=== PATIENT | female | born 1940 | race Caucasian/White ===

== ENCOUNTER 2017-02-28 12:59 | Emergency (ER) | payer BC, MEDICARE ==
[~2017-02-28] VITALS: Ht 170.2 cm; Wt 83.9 kg
[2017-02-28 13:25] VITALS: BP 123/56
--- NOTE | 2017-02-28 13:26 | PHYS DOC ---
Past Medical History Past Medical History: Diabetes-Type II, Hypertension Past Surgical History: Cholecystectomy Additional Past Surgical Histo: arie shunt Alcohol Use: None Drug Use: None Adult General Chief Complaint Chief Complaint: FOOT INJURY PAIN HPI HPI Patient is a 76 year old female presenting to the emergency department for evaluation of right foot pain after several large plastic storage containers fell on the top of her foot. This happened 2 days ago and it has been increasingly more difficult to walk and sleep due to the pain. The pain is on her posterior right lateral calcaneus. She has some abrasions and contusions on the top of her foot. She says her tetanus is not up-to-date so it was updated here. She is in no obvious distress with normal vital signs. Review of Systems Review of Systems Constitutional: Denies fever or chills [] Musculoskeletal: + R foot joint pain [] Integument: + abrasion Neurologic: Denies headache, focal weakness or sensory changes [] Current Medications Current Medications Current Medications Medications (Trade) Dose Ordered Sig/Awais Start Time Stop Time Status Last Admin Dose Admin Diphtheria/ Tetanus/Acell Pertussis (Boostrix) 0.5 ml ONCE ONCE 02/28/17 13:30 02/28/17 13:31 DC Allergies Allergies Allergies Coded Allergies Type Severity Reaction Last Updated Verified Penicillins Allergy 09/21/13 Yes Physical Exam Physical Exam Constitutional: Well developed, well nourished, no acute distress, non-toxic appearance. [] Extremities: Top of right foot with small contusion and overlying abrasion. Foot is mostly nontender except for her right posterior lateral calcaneus area. Neurologic: Alert and oriented X 3, normal motor function, normal sensory function, no focal deficits noted. [] Current Patient Data Vital Signs Vital Signs Date Time Temp Pulse Resp B/P (MAP) Pulse Ox O2 Delivery O2 Flow Rate FiO2 02/28/17 13:25 98.0 88 18 97 Room Air 98.0 EKG EKG [] Radiology/Procedures Radiology/Procedures EXAM: Right foot, 3 views. HISTORY: Heel pain. COMPARISON: None. FINDINGS: Frontal, lateral and oblique views of the right foot are obtained. There is no fracture, dislocation or subluxation. There is slight hyperextension of the second through fifth metatarsal phalangeal joints. There is a small plantar spur. There is enthesopathy at the Achilles tendon insertion. There are vascular calcifications. IMPRESSION: 1. No acute osseous finding. 2. Small plantar spur. DICTATED and SIGNED BY: SHANEKA GUTIERREZ MD DATE: 02/28/17 9259 Course & Med Decision Making Course & Med Decision Making Patient's x-ray unremarkable for acute findings so will discharge with instructions for NSAIDs [place] for breakthrough pain and PCP follow-up later this week if not improved. Patient aware and agreeable with plan. Dragon Disclaimer Dragon Disclaimer This electronic medical record was generated, in whole or in part, using a voice recognition dictation system. Departure Departure Impression: Primary Impression: Foot sprain Disposition: HOME, SELF-CARE Condition: GOOD Referrals: YOSEF CR MD (PCP) Patient Instructions: Foot Contusion Additional Instructions: TAKE 200MG OF IBUPROFEN EVERY 6 HOURS AND THE NORCO FOR BREAKTHROUGH PAIN. COME BACK TO THE ED SOONER WITH ANY NEW OR WORSENING SYMPTOMS. THANK YOU! Scripts Hydrocodone/Apap 5-325 (NORCO 5-325 TABLET) 1 Each Tablet 1 TAB PO PRN Q6HRS Y for PAIN, #14 TAB 0 Refills Prov: MIRA SALDIVAR DO 02/28/17 Problem Qualifiers Primary Impression: Foot sprain Encounter type: initial encounter Laterality: right Qualified Codes: S93.601A - Unspecified sprain of right foot, initial encounter MIRA SALDIVAR DO February 28, 2017 13:26
[2017-02-28] MEDS ORDERED: DIPHTH,PERTUSS(ACELL),TET TOX 0.5 ML DISP.SYRIN. VAX IM ONE (13:30)
--- NOTE | 2017-02-28 13:35 | RAD ---
EXAM: Right foot, 3 views. HISTORY: Heel pain. COMPARISON: None. FINDINGS: Frontal, lateral and oblique views of the right foot are obtained. There is no fracture, dislocation or subluxation. There is slight hyperextension of the second through fifth metatarsal phalangeal joints. There is a small plantar spur. There is enthesopathy at the Achilles tendon insertion. There are vascular calcifications. IMPRESSION: 1. No acute osseous finding. 2. Small plantar spur.
[2017-02-28] MEDS ORDERED: HYDR-971 PO (13:37)
== END 2017-02-28 14:04 | disposition home or self-care (01) ==
LOC: ER 12:59
DX: S93.601A Unspecified sprain of right foot, initial encounter (principal); E11.9 Type 2 diabetes mellitus without complications; I10 Essential (primary) hypertension; Z88.0 Allergy status to penicillin; W20.8XXA Other cause of strike by thrown, projected or falling object, initial encounter; Y93.89 Activity, other specified; Y92.89 Other specified places as the place of occurrence of the external cause; Y99.8 Other external cause status
CPT/HCPCS: 73630; 90471; 90715; 99284-25

== ENCOUNTER 2017-04-12 12:30 | Emergency (ER) | payer BC | END 2017-04-12 13:00 | disposition left against medical advice (07) | LOC: ER 12:30 | DX: R06.02 Shortness of breath (principal); Z53.21 Procedure and treatment not carried out due to patient leaving prior to being seen by health care provider ==

== ENCOUNTER → 2017-04-12 | Outpatient (CLI) | payer BC ==
[~2017-04-12] MED LIST: HYDR-971 PO
--- NOTE | 2017-04-12 14:20 | RAD ---
2 views of the Chest 04/12/2017 2:00 AM Indication: BRONCHITIS Comparison: Chest radiograph September 21, 2013 Findings: There is no focal consolidation or infiltrate identified. There is no effusion or pneumothorax. The cardiomediastinal silhouette and pulmonary vasculature are within normal limits. No osseous abnormality is identified. Impression: No evidence of acute cardiopulmonary process.
== END | disposition home or self-care (01) ==
LOC: RAD 13:12
PROVIDERS: ATTEND Family Medicine
DX: J40 Bronchitis, not specified as acute or chronic (principal)
CPT/HCPCS: 71020

== ENCOUNTER 2019-04-23 13:47 | Emergency (ER) | payer BC ==
[~2019-04-23] VITALS: Ht 170.2 cm; Wt 88.5 kg
[~2019-04-23 13:47] MED LIST changes: +HYDR-3164 PO; -HYDR-971 PO
[2019-04-23 13:55] VITALS: BP 162/67
--- NOTE | 2019-04-23 14:18 | PHYS DOC ---
Past Medical History Past Medical History: COPD, Diabetes-Type II, Hypertension Past Surgical History: Cholecystectomy Additional Past Surgical Histo: arie shunt Alcohol Use: None Drug Use: None Adult General Chief Complaint Chief Complaint: LOWER EXT PAIN HPI HPI Patient is a 78 old female who presents to the emergency department for evaluation of pain in both of her feet, for the past several weeks. She states about a month and a half ago, she developed a small sore on the lateral aspect of her left ankle after an injury. She states that she saw her PCP, and put antibiotic ointment on it per his instructions. However, she states that she developed a scaly-like lesions surrounding the wound, approximately 2 inches in diameter. She denies significant pain at that site. She also complains of pain on the right heel, which hasn't present for the past several weeks. She denies any discrete injury, but feels that "something is growing" in her heel. Palpation of the affected area worsens her pain. There are no alleviating factors to her symptoms. She denies any numbness, weakness, nausea, or vomiting. Patient declines the need for any analgesics at this time. Review of Systems Review of Systems Constitutional: Denies fever or chills [] Eyes: Denies change in visual acuity, redness, or eye pain [] HENT: Denies nasal congestion or sore throat [] Respiratory: Denies cough or shortness of breath [] Cardiovascular: The patient denies any shortness of breath, chest pain, palpitations, or orthopnea [] GI: Denies abdominal pain, nausea, vomiting, bloody stools or diarrhea [] : Denies dysuria or hematuria [] Musculoskeletal: Denies back pain or joint pain [] Integument: Denies rash or skin lesions, except as noted in the history of present illness. [] Neurologic: Denies headache, focal weakness or sensory changes [] Allergies Allergies Allergies Coded Allergies Type Severity Reaction Last Updated Verified Penicillins Allergy Intermediate 04/12/17 Yes Physical Exam Physical Exam PHYSICAL EXAM: CONSTITUTIONAL: Well developed, well nourished HEAD: normocephalic, atraumatic EENT: PERRL, EOMI. Conjunctivae normal color, sclerae non-icteric; moist mucous membranes. NECK: Supple, non-tender; no meningismus. LUNGS: Lungs CTA, breathing even and unlabored. Normal air movement. HEART: Regular rate and rhythm, no murmur CHEST: No deformity; non-tender ABDOMEN: The abdomen is soft, and non-tender, no masses or bruits. EXTREM: There is tenderness to palpation of the right heel, without any discrete lesion or abnormality. On the lateral aspect of the left ankle, there is a 2 x 2 centimeter scab, within approximately 2 inch circumferential surrounding erythematous plaque-like lesion which is scaly and nontender. The remainder of extremities are unremarkable, withNormal ROM; no deformity, no calf tenderness. Normal pulses palpable in all extremities. There is no pedal edema. SKIN: No rash; no diaphoresis NEURO: Alert; normal speech and cognition; CN's grossly intact; strength grossly intact without focal deficit. BACK: No CVA TTP. Current Patient Data Vital Signs Vital Signs Date Time Temp Pulse Resp B/P (MAP) Pulse Ox O2 Delivery O2 Flow Rate FiO2 04/23/19 13:55 98.0 74 16 162/67 (98) 97 Room Air 98.0 EKG EKG [] Radiology/Procedures Radiology/Procedures [PROCEDURE: FOOT RIGHT 3V Indication:Chronic right foot pain around here. No known injury TECHNIQUE: 3 views of the right foot COMPARISON: 02/28/2017 FINDINGS/ impression: No acute fracture or dislocation. Small plantar calcaneal spur. Soft tissue swelling is seen in the heel pad. Mild polyarticular osteoarthritis. ] Course & Med Decision Making Course & Med Decision Making Pertinent Imaging studies reviewed. (See chart for details) []3:00 PM:Patient remains stable. I discussed test results, the need for close follow-up, and return precautions. I discussed the uncertain etiology of the skin lesion on her left ankle and recommended she follow up with a digital business analyst. She states that she has a digital business analyst who she sees, as she recently had a skin cancer removed from her face. Dragon Disclaimer Dragon Disclaimer This electronic medical record was generated, in whole or in part, using a voice recognition dictation system. Departure Departure Impression: Primary Impression: Heel pain Additional Impression: Rash Disposition: 01 HOME, SELF-CARE Condition: STABLE Referrals: Cony CR MD (PCP) Patient Instructions: Heel Spur, Rash Problem Qualifiers MIRA JORGENSEN MD Apr 23, 2019 14:18
--- NOTE | 2019-04-23 14:53 | RAD ---
Indication:Chronic right foot pain around here. No known injury TECHNIQUE: 3 views of the right foot COMPARISON: 02/28/2017 FINDINGS/ impression: No acute fracture or dislocation. Small plantar calcaneal spur. Soft tissue swelling is seen in the heel pad. Mild polyarticular osteoarthritis. Electronically signed by: Cosmo Tsang DO (04/23/2019 2:50 PM) [facility]
== END 2019-04-23 15:11 | disposition home or self-care (01) ==
LOC: ER 13:47
DX: M79.671 Pain in right foot (principal); R21 Rash and other nonspecific skin eruption; G89.29 Other chronic pain; J44.9 Chronic obstructive pulmonary disease, unspecified; E11.9 Type 2 diabetes mellitus without complications; I10 Essential (primary) hypertension; Z88.0 Allergy status to penicillin
CPT/HCPCS: 73630; 99284

== ENCOUNTER → 2021-05-14 | Outpatient (CLI) | payer BC ==
--- NOTE | 2021-05-14 10:52 | RAD ---
EXAM: ABDOMINAL ULTRASOUND. HISTORY: Elevated liver enzymes. COMPARISON: None. FINDINGS: Sonographic evaluation of the abdomen was performed. Increased hepatic parenchymal echogenicity is consistent with steatosis. There are no focal lesions. The spleen measures 11.1 cm. The gallbladder is surgically absent. There is no sonographic Lucia sign. The common duct is dilated at 17 mm. The visualized portions of the head of the pancreas reveal no abnormality. The right kidney measures 10.2 cm. Cortical thickness and echogenicity are preserved. There is no hyd ronephrosis. The left kidney measures 12.0 cm. Cortical thickness and echogenicity are preserved. The re is no hydronephrosis. The visualized portions of the abdominal aorta and inferior vena cava are grossly patent and normal i n caliber. IMPRESSION: 1. Moderate extrahepatic biliary dilatation status post cholecystectomy. Correlate for cholestasis to assess significance. CT or MRCP could further evaluate if there is persistent concern. 2. Diffuse hepatic steatosis. Electronically signed by: Lissette Dubose MD (05/14/2021 10:50 AM) [id number]
== END ==
LOC: US 08:49
PROVIDERS: ATTEND Family Medicine
DX: K76.0 Fatty (change of) liver, not elsewhere classified (principal); Z90.49 Acquired absence of other specified parts of digestive tract
CPT/HCPCS: 76700

== ENCOUNTER 2022-01-23 08:51 | Emergency (ER) | payer BC ==
[~2022-01-23] VITALS: Ht 170.2 cm; Wt 79.5 kg
[2022-01-23] MEDS ORDERED: IV RINGERS,LACTATED 1000ML 1,000 ML IV ONE (09:45)
[2022-01-23 11:15] LABS: CALCIUM 8.9 mg/dL (8.5-10.1); CREATININE 1.1 mg/dL (0.6-1.0); GFR 47.9; POTASSIUM 4.8 mmol/L (3.5-5.1)
[2022-01-23 11:17] LABS: BASO % 1 % (0-3); EOS # 0.2 x10^3/uL (0.0-0.7); EOS % 2 % (0-3); HEMATOCRIT 34.4 % (36.0-47.0); HEMOGLOBIN 11.5 g/dL (12.0-15.5); LYMPH # 1.9 x10^3/uL (1.0-4.8); LYMPH % 27 % (24-48); MEAN CORPUSCULAR HEMOGLOBIN 28 pg (25-35); MEAN CORPUSCULAR HGB CONC 33 g/dL (31-37); MEAN CORPUSCULAR VOLUME 85 fL (79-100); MONO # 0.5 x10^3/uL (0.0-1.1); MONO % 7 % (0-9); NEUT # 4.5 x10^3/uL (1.8-7.7); NEUT % 63 % (31-73); PLATELET COUNT 176 x10^3/uL (140-400); RED BLOOD COUNT 4.06 x10^6/uL (3.50-5.40); RED CELL DISTRIBUTION WIDTH 14.3 % (11.5-14.5); WHITE BLOOD COUNT 7.1 x10^3/uL (4.0-11.0)
[2022-01-23 11:22] LABS: ALBUMIN 3.4 g/dL (3.4-5.0); ALBUMIN/GLOBULIN RATIO 0.8 (1.0-1.7); TOTAL BILIRUBIN 0.2 mg/dL (0.2-1.0); TOTAL PROTEIN 7.6 g/dL (6.4-8.2)
--- NOTE | 2022-01-23 11:49 | PHYS DOC ---
Past Medical History Past Medical History: COPD, Diabetes-Type II, Hypertension Past Surgical History: Cholecystectomy Additional Past Surgical Histo: arie shunt Smoking Status: Never Smoker Alcohol Use: None Drug Use: None General Adult EDM: Chief Complaint: VAGINAL BLEEDING HPI: HPI: Patient is a 81 year old female who presents with chief complaint of vaginal bleeding. Patient reports that she noticed a scant amount of blood in her underwear yesterday, which resolved on its own. She noticed the same today, and decided to come in for evaluation of vaginal bleeding. She states her daughter has been diagnosed with MANAGER GAMING cancer. Patient denies abdominal pain, pelvic pain, N/V/D, dysuria, hematuria, vaginal discharge, vaginal pain. Review of Systems: Review of Systems: Constitutional: Denies fever, chills or generalized weakness Eyes: Denies change in visual acuity, visual field deficits or discharge HENT: Denies ear pain, nasal congestion or sore throat Respiratory: Denies cough or shortness of breath Cardiovascular: Denies chest pain, palpitations or edema GI: See HPI : See HPI Musculoskeletal: Denies back pain or joint pain Integument: Denies rash or other skin lesion Neurologic: Denies headache, focal weakness or sensory changes Heart Score: C/O Chest Pain: No Current Medications: Current Medications Medications (Trade) Dose Ordered Sig/Awais Start Time Stop Time Status Last Admin Dose Admin Ringer's Solution 1,000 ml @ 1,000 mls/hr 1X ONCE 01/23/22 09:45 01/23/22 10:44 DC 01/23/22 10:52 1,000 MLS/HR Allergies: Allergies: Allergies Coded Allergies Type Severity Reaction Last Updated Verified Penicillins Allergy Intermediate 04/12/17 Yes Physical Exam: PE: Constitutional: Well developed, well nourished, no acute distress, non-toxic appearance. HENT: Normocephalic, atraumatic, bilateral external ears normal, nose normal. Eyes: EOMI, conjunctiva normal, no discharge. Neck: Normal range of motion, no stridor. Abdomen: Bowel sounds normal, soft, no tenderness, no masses, no pulsatile masses. Skin: Warm, dry, no erythema, no rash. Back: No tenderness, no CVA tenderness. Neurologic: Alert and oriented x4, normal motor function, normal sensory function, no focal deficits noted. Current Patient Data: Labs: Laboratory Tests Test 01/23/22 10:50 01/23/22 12:05 White Blood Count 7.1 x10^3/uL (4.0-11.0) Red Blood Count 4.06 x10^6/uL (3.50-5.40) Hemoglobin 11.5 g/dL (12.0-15.5) Hematocrit 34.4 % (36.0-47.0) Mean Corpuscular Volume 85 fL (79-100) Mean Corpuscular Hemoglobin 28 pg (25-35) Mean Corpuscular Hemoglobin Concent 33 g/dL (31-37) Red Cell Distribution Width 14.3 % (11.5-14.5) Platelet Count 176 x10^3/uL (140-400) Neutrophils (%) (Auto) 63 % (31-73) Lymphocytes (%) (Auto) 27 % (24-48) Monocytes (%) (Auto) 7 % (0-9) Eosinophils (%) (Auto) 2 % (0-3) Basophils (%) (Auto) 1 % (0-3) Neutrophils # (Auto) 4.5 x10^3/uL (1.8-7.7) Lymphocytes # (Auto) 1.9 x10^3/uL (1.0-4.8) Monocytes # (Auto) 0.5 x10^3/uL (0.0-1.1) Eosinophils # (Auto) 0.2 x10^3/uL (0.0-0.7) Basophils # (Auto) 0.0 x10^3/uL (0.0-0.2) Sodium Level 137 mmol/L (136-145) Potassium Level 4.8 mmol/L (3.5-5.1) Chloride Level 103 mmol/L (98-107) Carbon Dioxide Level 24 mmol/L (21-32) Anion Gap 10 (6-14) Blood Urea Nitrogen 32 mg/dL (7-20) Creatinine 1.1 mg/dL (0.6-1.0) Estimated GFR (Cockcroft-Gault) 47.9 BUN/Creatinine Ratio 29 (6-20) Glucose Level 327 mg/dL (70-99) Calcium Level 8.9 mg/dL (8.5-10.1) Total Bilirubin 0.2 mg/dL (0.2-1.0) Aspartate Amino Transf (AST/SGOT) 38 U/L (15-37) Alanine Aminotransferase (ALT/SGPT) 54 U/L (14-59) Alkaline Phosphatase 103 U/L (46-116) Total Protein 7.6 g/dL (6.4-8.2) Albumin 3.4 g/dL (3.4-5.0) Albumin/Globulin Ratio 0.8 (1.0-1.7) Urine Collection Type Unknown Urine Color (Auto) Colorless Urine Turbidity Clear Urine pH (Auto) 6.5 (<5.0-8.0) Urine Specific [place] 1.008 (1.000-1.030) Urine Protein (Auto) Negative mg/dL (Negative) Urine Glucose (Auto)(UA) 500 mg/dL (Negative) Urine Ketones (Auto) Negative mg/dL (Negative) Urine Blood (Auto) Negative (Negative) Urine Nitrite Negative (Negative) Urine Bilirubin (Auto) Negative (Negative) Urine Urobilinogen (Auto) Normal mg/dL (Normal) Urine Leukocyte Esterase (Auto) Negative (Negative) Urine RBC 0 /HPF (0-2) Urine WBC Occ /HPF (0-4) Urine Squamous Epithelial Cells Few /LPF Urine Bacteria 0 /HPF (0-FEW) Laboratory Tests 01/23/22 10:50 Laboratory Tests 01/23/22 10:50 Vital Signs: Vital Signs Date Time Temp Pulse Resp B/P (MAP) Pulse Ox O2 Delivery O2 Flow Rate FiO2 01/23/22 10:54 74 18 157/67 (97) 99 Room Air 01/23/22 09:25 97.9 71 20 135/78 (97) 99 Room Air 97.9 Radiology/Procedures: Radiology/Procedures: PROCEDURE: PELVIS W/TV EXAMINATION: US PELVIS W/TV, 01/23/2022 11:47 AM CLINICAL INDICATION: Vaginal bleeding postmenopausal TECHNIQUE: Grayscale, color and spectral Doppler ultrasound images of the pelvis via transabdominal and transvaginal approach. COMPARISON: None. FINDINGS: The exam was limited due to patient discomfort. The uterus measures 8.0 x 5.9 x 3.8 cm. There is a small amount of fluid in the endometrial canal. Subtracting the width of the fluid, the endometrial stripe measures 6 mm in thickness. No myometrial mass. The right ovary measures 2.7 x 1.9 x 2.1 cm. There is normal right ovarian blood flow. The left ovary is obscured by bowel gas. No adnexal mass or free fluid. IMPRESSION: 1. Limited exam due to patient discomfort. 2. Small amount of fluid in the endometrial canal and mildly thickened endometrial stripe measuring 6 mm after subtracting the width of the fluid. 3. Nonvisualized left ovary, obscured by bowel gas. Electronically signed by: Candace Arauz MD (01/23/2022 1:21 PM) [id number] Course & Med Decision Making: Course & Med Decision Making Pertinent Labs and Imaging studies reviewed. (See chart for details) Is a 81-year-old female who presents with 2-day history of vaginal bleeding. Patient denies all other complaints. Work-up today will include labs, urinalysis via straight cath, pelvic ultrasound. Ultrasound reveals endometrial fluid with 6 mm endometrial stripe, concerning for underlying pathology. Spoke to Dr. Griffin, MOGUL OPERATOR, who advises patient follow-up with either him or Dr. Hermelinda Morse, gynecology/oncology, at [facility]. Patient will be given contact information for both providers and strongly advised to follow-up for further evaluation and management. Return precautions were provided. Patient understands and is agreeable to discharge plan. Dragon Disclaimer: Ninite Disclaimer: This electronic medical record was generated, in whole or in part, using a voice recognition dictation system. Departure Departure Impression: Primary Impression: Postmenopausal vaginal bleeding Disposition: HOME / SELF CARE / HOMELESS Condition: STABLE Referrals: Cony CR MD (PCP) MARA GRIFFIN MD Patient Instructions: Abnormal Uterine Bleeding Additional Instructions: Dr. Hermelinda Morse [facility] [place] [address] for appointments EMERGENCY DEPARTMENT GENERAL DISCHARGE INSTRUCTIONS Thank you for coming to [facility] Emergency Department (ED) today and trusting us with you care. We trust that you had a positive experience in our Emergency Department. If you wish to speak to the department management, you may call the director at . YOUR FOLLOW UP INSTRUCTIONS ARE FOLLOWS: 1. Follow up with your primary care doctor. If you do not have a primary doctor, please ask for a resource list of physicians or clinics that may be able to assist you with follow up care. 2. The emergency provider has interpreted your imaging studies, if any were ordered. The radiology patient care specialist also reviewed them. If there is a change in the findings, you will be notified in 48 hours when at all possible. 3. If a lab test or culture has been done, your results will be reviewed and you will be notified if you need a change in treatment. 4. Follow instructions verbalized to you and refer to the printouts if needed. ADDITIONAL INSTRUCTIONS AND INFORMATION: 1. Your care today has been supervised by a physician who is specially trained in emergency care. Many problems require more than one evaluation for a complete diagnosis and treatment. We recommend that you schedule your follow up appointment as recommended to ensure complete treatment of you illness or injury. If you are unable to obtain follow up care and continue to have a pr oblem, or if your condition worsens, we recommend that you return to the ED. 2. We are not able to safely determine your condition over the phone nor are we able to give sound medical advice over the phone. For these safety reasons, if you call for medical advice we will ask you to come to the ED for further evaluation. 3. If you have any questions regarding these discharge instructions please call the ED at . SAFETY INFORMATION: In the interest of safety, wellness, and injury prevention; we encourage you to wear your seat belt, if you smoke; quite smoking, and we encourage family to use a protective helmet for bicycling and other sporting events that present an increased risk for head injury. IF YOUR SYMPTOMS WORSEN OR NEW SYMPTOMS DEVELOP, OR YOU HAVE CONCERNS ABOUT YOUR CONDITION; OR IF YOUR CONDITION WORSENS WHILE YOU ARE WAITING FOR YOUR FOLLOW UP APPOINTMENT; EITHER CONTACT YOUR PRIMARY CARE DOCTOR, THE PHYSICIAN WHOSE NAME AND NUMBER YOU WERE GIVEN, OR RETURN TO THE ED IMMEDIATELY. DRU PASCAL Jan 23, 2022 11:49
[2022-01-23 13:03] LABS: BACTERIA,URINE 0 /HPF (0-FEW); RBC,URINE 0 /HPF (0-2); WBC,URINE OCC /HPF (0-4)
--- NOTE | 2022-01-23 13:23 | RAD ---
EXAMINATION: US PELVIS W/TV, 01/23/2022 11:47 AM CLINICAL INDICATION: Vaginal bleeding postmenopausal TECHNIQUE: Grayscale, color and spectral Doppler ultrasound images of the pelvis via transabdominal a nd transvaginal approach. COMPARISON: None. FINDINGS: The exam was limited due to patient discomfort. The uterus measures 8.0 x 5.9 x 3.8 cm. There is a small amount of fluid in the endometrial canal. Morrison btracting the width of the fluid, the endometrial stripe measures 6 mm in thickness. No myometrial m ass. The right ovary measures 2.7 x 1.9 x 2.1 cm. There is normal right ovarian blood flow. The left ovary is obscured by bowel gas. No adnexal mass or free fluid. IMPRESSION: 1. Limited exam due to patient discomfort. 2. Small amount of fluid in the endometrial canal and mildly thickened endometrial stripe measuring 6 mm after subtracting the width of the fluid. 3. Nonvisualized left ovary, obscured by bowel gas. Electronically signed by: Candace Arauz MD (01/23/2022 1:21 PM) [id number]
[2022-01-23 14:25] VITALS: BP 152/66
== END 2022-01-23 14:31 | disposition home or self-care (01) ==
LOC: ER 08:51
DX: N95.0 Postmenopausal bleeding (principal); J44.9 Chronic obstructive pulmonary disease, unspecified; E11.9 Type 2 diabetes mellitus without complications; I10 Essential (primary) hypertension; Z88.0 Allergy status to penicillin
CPT/HCPCS: 36415; 76830; 76856; 80053; 81001; 85025; 96360; 99285; J7120; P9612

== ENCOUNTER 2022-01-30 11:13 | Emergency (ER) | payer BC ==
[~2022-01-30] VITALS: Ht 170.2 cm; Wt 84.1 kg
[2022-01-30 11:16] VITALS: BP 125/59
[2022-01-30] MEDS ORDERED: KETOROLAC 15 MG/ML VIAL. IM ONE (12:30)
[2022-01-30] MEDS ORDERED: ORPHENADRINE CITRATE 60 MG/2 ML VIAL. IM ONE (12:30)
--- NOTE | 2022-01-30 13:23 | RAD ---
CT HEAD AND C-SPINE WO Date: 01/30/2022 12:54 PM Clinical Indication: Pain status post fall Comparison: MRI cervical spine from 2012. Technique: 5 mm axial tomographic images were obtained of the head without contrast. These were view ed on brain and bone windows. Noncontrast CT of the cervical spine was performed. Sagittal and root l reformats were performed and evaluated. One or more of the following dose reduction techniques were utilized: Automated exposure control (AEC), Adjustment of mA and/or kV according to patient size, Us e of iterative reconstruction technique such as ASiR, CT scan done according to ALARA and image gentl y/image wisely HEAD FINDINGS: Mild generalized cerebral and cerebellar volume loss. Mild nonspecific periventricular hypoattenuatio n, most commonly seen with chronic small vessel ischemic disease. No intra- or extra-axial mass or fluid collection. No acute hemorrhage. The ventricles are normal in size, shape, and morphology. The gallegos-white matter junction is normal. The basilar cisterns are paten t. The visualized paranasal sinuses are normal. The visualized portions of the orbits and globes are no rmal. The mastoid air cells are clear. No aggressive osseous lesion or fracture. CERVICAL SPINE FINDINGS: The cervical spine is normally aligned. No acute fracture. No aggressive lytic or blastic osseous les ions. Mild multilevel degenerative disc space height loss. Multilevel mild spinal canal stenosis secondary to disc protrusions and marginal osteophytes. Multilevel mild neuroforaminal narrowing secondary to u ncovertebral arthrosis. Multilevel mild facet arthrosis. Next attenuating 1.7 cm nodule in the left thyroid lobe with associated coarse calcifications. No cer vical lymphadenopathy. Bilateral carotid atherosclerosis. The visualized aerodigestive tract is nayely l. Minimal biapical pleural scarring. The visualized portions of the lungs are clear. IMPRESSION: 1. No acute intracranial process. 2. No acute cervical spine fracture. 3. Mild cerebral volume loss. Mild chronic small vessel ischemic disease. 4. Mild degenerative cervical spondylosis. 5. Mixed attenuating 1.7 cm nodule in the left thyroid lobe with associated coarse calcifications. Re commend correlation with endocrine function and follow-up with thyroid ultrasound. Electronically signed by: Frank Anne DO (01/30/2022 1:21 PM) [facility]
--- NOTE | 2022-01-30 13:37 | RAD ---
CT LUMBAR SPINE WO, CT THORACIC SPINE WO History: Pain status post fall Technique: Noncontrast CT was performed of the thoracic and lumbar spine. Multiplanar reconstructions were performed. Comparison: None Findings: Decreased osseous mineralization. There are 12 thoracic vertebral bodies in normal alignment. Vertebral body heights are maintained. Th ere are flowing osteophytes throughout the thoracic spine. There is a linear lucency through the larg e marginal osteophytes at the T7-T8 level. No significant canal or foraminal stenosis in the thoracic spine. Mildly patulous esophagus containing a fluid level in the mid thorax. Linear subpleural reticular rama nges in the lungs. No pleural effusion. There are 5 nonrib-bearing lumbar type vertebral bodies. Normal lumbar vertebral heights are maintain ed without fracture. Normal alignment. Multilevel lumbar degenerative changes with moderate disc spac e narrowing L3-L4 and L4-L5. Severe disc height loss L5-S1. Multilevel disc bulge and facet hypertrop hy. Disc bulge narrows the spinal canal to approximately 8 mm at the level of L4 on L5. Aortoiliac calcification. Unremarkable bladder, uterus and adnexa. Impression: 1. Flowing osteophytes in the thoracic spine with linear lucency through the bulky T7-T8 osteophytes concerning for nondisplaced osteophyte fracture, age-indeterminate. 2. Degenerative changes in the lumbar spine without acute osseous abnormality. Exposure: One or more of the following individualized dose reduction techniques were utilized for thi s examination: 1. Automated exposure control 2. Adjustment of the mA and/or kV according to patient size 3. Use of iterative reconstruction technique. Electronically signed by: John Vo MD (01/30/2022 1:35 PM) [id number]
[2022-01-30] MEDS ORDERED: NAPR-695 PO (14:35)
[2022-01-30] MEDS ORDERED: ORPH100T PO (14:35)
--- NOTE | 2022-01-30 14:36 | PHYS DOC ---
Past Medical History Past Medical History: COPD, Diabetes-Type II, Hypertension Past Surgical History: Cholecystectomy Additional Past Surgical Histo: arie shunt Smoking Status: Never Smoker Alcohol Use: None Drug Use: None General Adult EDM: Chief Complaint: BACK PAIN OR INJURY HPI: HPI: Patient is a 81-year-old female presents with report of diffuse back pain status post fall on Wednesday. Patient reports was stepping up onto a sidewalk on Wednesday and ended up missing the curb. Patient reports when she stepped up she ended up tripping and hitting her low back. Patient does report head contusion without loss of conscious. Denies any use of blood thinners. Denies fever or chills. Denies epistaxis. Patient reports some continued pain. Denies any loss of bowel or bladder. Denies fever or chills. Denies dysuria or hematuria. Review of Systems: Review of Systems: Constitutional: Denies fever or chills Eyes: Denies redness or eye pain HENT: Denies epistaxis Respiratory: Denies cough or shortness of breath Cardiovascular: Denies chest pain or palpitations GI: Denies abdominal pain, nausea, or vomiting : Denies dysuria or hematuria Musculoskeletal: Reports low back pain; denies joint pain Integument: Denies rash or skin lesions Neurologic: Denies headache, focal weakness or sensory changes Complete systems were reviewed and found to be within normal limits, except as documented in this note. Heart Score: C/O Chest Pain: N/A Current Medications: Current Medications Medications (Trade) Dose Ordered Sig/[facility] Start Time Stop Time Status Last Admin Dose Admin Ketorolac Tromethamine (Toradol 15mg Vial) 15 mg 1X ONCE 01/30/22 12:30 01/30/22 12:38 DC 01/30/22 12:57 15 MG Orphenadrine Citrate (Norflex) 60 mg 1X ONCE 01/30/22 12:30 01/30/22 12:38 DC 01/30/22 12:59 60 MG Allergies: Allergies: Allergies Coded Allergies Type Severity Reaction Last Updated Verified Penicillins Allergy Intermediate 04/12/17 Yes Physical Exam: PE: Constitutional: Well developed, well nourished, no acute distress, non-toxic appearance HENT: Normocephalic, atraumatic Eyes: PERRL, EOMI, conjunctiva normal, no discharge Neck: Normal range of motion, no tenderness, supple Lungs & Thorax: No respiratory distress, equal chest rise and fall Abdomen: Soft, no tenderness; pelvis stable and nontender Skin: Warm, dry, no erythema, no rash Back: Thoracic and lumbar midline spinal tenderness, no CVA tenderness Extremities: No tenderness, ROM intact, no edema Neurologic: Alert and oriented X 3, normal motor function, normal sensory function, no focal deficits noted Psychologic: Affect normal, judgment normal Current Patient Data: Vital Signs: Vital Signs Date Time Temp Pulse Resp B/P (MAP) Pulse Ox O2 Delivery O2 Flow Rate FiO2 01/30/22 11:16 97.6 92 18 125/59 (81) 99 Room Air 97.6 EKG: EKG: [] Radiology/Procedures: Radiology/Procedures: PROCEDURE: CT HEAD AND CERVICAL SPINE WO CT HEAD AND C-SPINE WO Date: 01/30/2022 12:54 PM Clinical Indication: Pain status post fall Comparison: MRI cervical spine from 2012. Technique: 5 mm axial tomographic images were obtained of the head without contrast. These were viewed on brain and bone windows. Noncontrast CT of the cervical spine was performed. Sagittal and coronal reformats were performed and evaluated. One or more of the following dose reduction techniques were utilized: Automated exposure control (AEC), Adjustment of mA and/or kV according to patient size, Use of iterative reconstruction technique such as ASiR, CT scan done according to ALARA and image gently/image wisely HEAD FINDINGS: Mild generalized cerebral and cerebellar volume loss. Mild nonspecific periventricular hypoattenuation, most commonly seen with chronic small vessel ischemic disease. No intra- or extra-axial mass or fluid collection. No acute hemorrhage. The ventricles are normal in size, shape, and morphology. The gallegos-white matter junction is normal. The basilar cisterns are patent. The visualized paranasal sinuses are normal. The visualized portions of the or bits and globes are normal. The mastoid air cells are clear. No aggressive osseous lesion or fracture. CERVICAL SPINE FINDINGS: The cervical spine is normally aligned. No acute fracture. No aggressive lytic or blastic osseous lesions. Mild multilevel degenerative disc space height loss. Multilevel mild spinal canal stenosis secondary to disc protrusions and marginal osteophytes. Multilevel mild neuroforaminal narrowing secondary to uncovertebral arthrosis. Multilevel mild facet arthrosis. Next attenuating 1.7 cm nodule in the left thyroid lobe with associated coarse calcifications. No cervical lymphadenopathy. Bilateral carotid atherosclerosis. The visualized aerodigestive tract is normal. Minimal biapical pleural scarring. The visualized portions of the lungs are clear. IMPRESSION: 1. No acute intracranial process. 2. No acute cervical spine fracture. 3. Mild cerebral volume loss. Mild chronic small vessel ischemic disease. 4. Mild degenerative cervical spondylosis. 5. Mixed attenuating 1.7 cm nodule in the left thyroid lobe with associated coarse calcifications. Recommend correlation with endocrine function and follow- up with thyroid ultrasound. Electronically signed by: Frank Anne DO (01/30/2022 1:21 PM) [facility] PROCEDURE: CT THORACIC SPINE WO CONTRAST CT LUMBAR SPINE WO, CT THORACIC SPINE WO History: Pain status post fall Technique: Noncontrast CT was performed of the thoracic and lumbar spine. Multiplanar reconstructions were performed. Comparison: None Findings: Decreased osseous mineralization. There are 12 thoracic vertebral bodies in normal alignment. Vertebral body heights are maintained. There are flowing osteophytes throughout the thoracic spine. There is a linear lucency through the large marginal osteophytes at the T7-T8 level. No significant canal or foraminal stenosis in the thoracic spine. Mildly patulous esophagus containing a fluid level in the mid thorax. Linear subpleural reticular changes in the lungs. No pleural effusion. There are 5 nonrib-bearing lumbar type vertebral bodies. Normal lumbar vertebral heights are maintained without fracture. Normal alignment. Multilevel lumbar degenerative changes with moderate disc space narrowing L3-L4 and L4-L5. Severe disc height loss L5-S1. Multilevel disc bulge and facet hypertrophy. Disc bulge narrows the spinal canal to approximately 8 mm at the level of L4 on L5. Aortoiliac calcification. Unremarkable bladder, uterus and adnexa. Impression: 1. Flowing osteophytes in the thoracic spine with linear lucency through the bulky T7-T8 osteophytes concerning for nondisplaced osteophyte fracture, age- indeterminate. 2. Degenerative changes in the lumbar spine without acute osseous abnormality. Exposure: One or more of the following individualized dose reduction techniques were utilized for this examination: 1. Automated exposure control 2. Adjustment of the mA and/or kV according to patient size 3. Use of iterative reconstruction technique. Electronically signed by: John Vo MD (01/30/2022 1:35 PM) [id number] PROCEDURE: CT LUMBAR SPINE WO CONTRAST CT LUMBAR SPINE WO, CT THORACIC SPINE WO History: Pain status post fall Technique: Noncontrast CT was performed of the thoracic and lumbar spine. Multiplanar reconstructions were performed. Comparison: None Findings: Decreased osseous mineralization. There are 12 thoracic vertebral bodies in normal alignment. Vertebral body heights are maintained. There are flowing osteophytes throughout the thoracic spine. There is a linear lucency through the large marginal osteophytes at the T7-T8 level. No significant canal or foraminal stenosis in the thoracic spine. Mildly patulous esophagus containing a fluid level in the mid thorax. Linear subpleural reticular changes in the lungs. No pleural effusion. There are 5 nonrib-bearing lumbar type vertebral bodies. Normal lumbar vertebral heights are maintained without fracture. Normal alignment. Multilevel lumbar degenerative changes with moderate disc space narrowing L3-L4 and L4-L5. Severe disc height loss L5-S1. Multilevel disc bulge and facet hypertrophy. Disc bulge narrows the spinal canal to approximately 8 mm at the level of L4 on L5. Aortoiliac calcification. Unremarkable bladder, uterus and adnexa. Impression: 1. Flowing osteophytes in the thoracic spine with linear lucency through the bulky T7-T8 osteophytes concerning for nondisplaced osteophyte fracture, age- indeterminate. 2. Degenerative changes in the lumbar spine without acute osseous abnormality. Exposure: One or more of the following individualized dose reduction techniques were utilized for this examination: 1. Automated exposure control 2. Adjustment of the mA and/or kV according to patient size 3. Use of iterative reconstruction technique. Electronically signed by: John Vo MD (01/30/2022 1:35 PM) [id number] Course & Med Decision Making: Course & Med Decision Making Pertinent Imaging studies reviewed. (See chart for details) Patient presents with report of mechanical trip and fall on Wednesday. Patient does report striking her head. Patient does have some midline thoracic and lumbar tenderness. Denies loss of bowel or bladder. Denies fever or chills. CT head/cervical spine without acute process. CT thoracic and lumbar spine also without acute fracture or dislocation. Symptomatic treatment provided. Patient stable for discharge with outpatient follow-up with PCP. Discussed findings and plan with patient, who acknowledges understanding and agreement. Marshall Disclaimer: Marshall Disclaimer: This electronic medical record was generated, in whole or in part, using a voice recognition dictation system. Departure Departure Impression: Primary Impression: Back pain Qualified Codes: M54.6 - Pain in thoracic spine Disposition: HOME / SELF CARE / HOMELESS Condition: STABLE Referrals: Cony CR MD (PCP) LEONARD NAM MD Patient Instructions: Back Pain, Adult, [id number] Additional Instructions: Ice area of discomfort 20 minutes on then leave off for next 20 minutes. Repeat several times daily for the next few days. Do not take your home tizanidine medication as the orphenadrine will replace it. Scripts Orphenadrine Citrate (ORPHENADRINE CITRATE) 100 Mg Tablet.er 100 MG PO BID PRN for MUSCLE PAIN, #14 TAB Prov: MARA AQUINO DO 01/30/22 Naproxen (NAPROXEN) 375 Mg Tablet 375 MG PO TID PRN for PAIN, #20 TAB Prov: MARA AQUINO DO 01/30/22 MARA AQUINO DO Jan 30, 2022 14:36
== END 2022-01-30 14:50 | disposition home or self-care (01) ==
LOC: ER 11:13
DX: M54.6 Pain in thoracic spine (principal); M54.50 Low back pain, unspecified; G89.11 Acute pain due to trauma; R51.9 Headache, unspecified; J44.9 Chronic obstructive pulmonary disease, unspecified; E11.9 Type 2 diabetes mellitus without complications; I10 Essential (primary) hypertension; Z90.49 Acquired absence of other specified parts of digestive tract; Z88.0 Allergy status to penicillin; W18.39XA Other fall on same level, initial encounter; Y93.89 Activity, other specified; Y92.89 Other specified places as the place of occurrence of the external cause; Y99.8 Other external cause status
CPT/HCPCS: 70450; 72125; 72128; 72131; 96372; 99284; J1885; J2360